=== PATIENT | male | born 1965 | race Caucasian/White ===

== ENCOUNTER 2017-03-19 12:20 | Emergency (ER) | payer MEDICARE, MEDICAID ==
[2015-09-05 08:36] VITALS: Ht 180.3 cm; Wt 106.6 kg
[~2017-03-19] VITALS: Ht 180.3 cm; Wt 106.6 kg
[~2017-03-19 12:20] MED LIST: AMIT-104 PO; ASP325 PO; ASPI-1471 PO; ATOR40TA24 PO; BETA BLOCKER; CALC500T76 PO; CIT20 PO; CITA-156 PO; CLO5 PO; DEXL60CA6 PO; DIPH-1 PO; ERYT1OIN3 OP; FISH OIL1 CAP PO; HYDR-4240 PO; IBUP600T22 PO; LISI5TAB25 PO; LOR1 PO; MEDR150V11 IM; METO25TA93 PO; METO50TA19 PO; MODA200T55 PO; MODA200T6 PO; MULT-451 PO; MULT-885 PO; MULTIVIT; NEBI1TAB PO; NIC10R; NO MEDS; OMEG500C7 PO; OMEP-125 PO; OMEP40CA79 PO; PAR20 PO; PAROX40PT PO; ROBAXIN; ROPI0.5T25 PO; SIMV-42 PO; SIMV-44 PO; STATIN; TICA90TA PO; TIOT4MIS3; TRAZ-133 PO; TRAZ-163 PO; TRAZ50 PO; TRAZEDONE PO; ZOL5 PO; acid reflux med
[2017-03-19] MEDS ORDERED: ASPIRIN 81 MG CHEW PO ONE (12:30)
--- NOTE | 2017-03-19 12:30 | ER Report ---
History and Physical Time Seen By MD: 12:28 HPI/ROS CHIEF COMPLAINT: Chest pain HISTORY OF PRESENT ILLNESS: 52-year-old male comes emergency Department today with complaint of left-sided pleuritic chest discomfort. Patient has had multiple episodes of similar issues in the past was seen here several months ago had a recent stress test done less than 6 months ago which was negative has a significant history of multiple stent placements followed a cardiology out of [place]. Patient states he was in his normal state of health earlier today at about 1520 minutes prior to presentation started getting some pain in the left side described as sharp stabbing pleuritic some radiation left upper extremity had this pain in numerous occasions in the past last workup was essentially negative. Patient denies any nausea vomiting diarrhea fever chills associated shortness of breath patient still smoker patient has no additional complaints at this time REVIEW OF SYSTEMS: Respiratory: No cough, no dyspnea. Cardiovascular: Chest pain without palpitation Gastrointestinal: No vomiting, no abdominal pain. Musculoskeletal: No back pain. Remainder of the 14 system rev: Yes Allergies: Coded Allergies: codeine (Verified Adverse Reaction, Mild, NAUSEA/VOMITING, RASHES, 03/19/17) Home Meds Reported Medications Fluticasone/Vilanterol 100/25 Mcg/Inh (BREO ELLIPTA 100/25 MCG) 1 Each Aer.pow.ba, 1 INH INH QDAY, INH 03/19/17 Ezetimibe (ZETIA) 10 Mg Tablet, 10 MG PO QDAY, TAB 03/19/17 Rosuvastatin Calcium (Rosuvastatin Calcium) 40 Mg Tablet 03/19/17 Nitroglycerin (NITROGLYCERIN) 0.4 Mg Tab.subl, 0.4 MG SL Q5MIN 03/19/17 Lisinopril (LISINOPRIL) 5 Mg Tablet, 5 MG PO QDAY, TAB 11/15/16 Ropinirole Hcl (ROPINIROLE HCL) 0.5 Mg Tablet, 0.5 MG PO HS 11/15/16 Omeprazole (OMEPRAZOLE) 20 Mg Capsule.dr, 1 CAP PO QDAY, CAP 11/15/16 Trazodone Hcl (TRAZODONE HCL) 100 Mg Tablet, 100 MG PO HS, TAB 04/16/16 Metoprolol Succinate (METOPROLOL SUCCINATE) 50 Mg Tab.er.24h, 1 TAB PO QDAY, TAB 04/16/16 Ticagrelor (BRILINTA) 90 Mg Tablet, 90 MG PO 04/16/16 Aspirin (ASPIR 81) 81 Mg Tablet.dr, 81 MG PO QDAY, TAB 09/06/15 Atorvastatin Calcium (LIPITOR) 40 Mg Tablet, 1 TAB PO QDAY, TAB 09/04/15 Multivitamin (DAILY VITAMIN) 1 Each Tablet, 1 EACH PO DAILY 09/26/12 Discontinued Reported Medications Tiotropium Br/Olodaterol HCl (Stiolto Respimat Inhal [place]) 4 Gm Mist.inhal 11/15/16 Nebivolol HCl/Valsartan ([place] 5 mg-80 mg Tablet) 5 Mg-80 Mg Tablet, 1 TAB PO DAILY 06/03/16 [place]-3 Fatty Acids (FISH OIL) 500 Mg Capsule, 1000 MG PO, CAPSULE 09/06/15 Reviewed Nurses Notes: Yes Old Medical Records Reviewed: Yes Hx Smoking: Yes Smoking Status: Heavy Tobacco Smoker Exposure to Second Hand Smoke?: No Hx Substance Use Disorder: No (Past marijuana use.) Hx Alcohol Use: No Constitutional Vital Sign - Last 24 Hours 03/19/17 03/19/17 03/19/17 03/19/17 12:24 12:26 12:30 12:35 Pulse 68 67 Resp 20 B/P (MAP) 141/92 (108) 142/92 132/86 (101) Pulse Ox 94 95 O2 Delivery Room Air 03/19/17 03/19/17 03/19/17 03/19/17 13:05 13:13 13:30 13:35 Pulse 68 70 B/P (MAP) 111/80 (90) 126/77 (93) Pulse Ox 94 90 03/19/17 03/19/17 03/19/17 03/19/17 13:55 14:00 14:05 14:30 Pulse 72 B/P (MAP) 119/94 (102) 126/83 (97) 124/88 (100) Pulse Ox 93 03/19/17 14:35 Pulse 69 Pulse Ox 91 Physical Exam General Appearance: The patient is alert, has no immediate need for airway protection and no current signs of toxicity. [ ] Eyes: Pupils equal and round no injection. Respiratory: Chest is non tender, lungs are clear to auscultation. Cardiac: regular rate and rhythm [ ] Gastrointestinal: Abdomen is soft and non tender, no masses, bowel sounds normal. Musculoskeletal: Neck: Neck is supple and non tender. Extremities have full range of motion and are non tender. Skin: No rashes or lesions. [ ] DIFFERENTIAL DIAGNOSIS: After history and physical exam differential diagnosis was considered for acute myocardial infarction and stenting pleuritic chest discomfort costochondritis pulmonary emboli aortic dissection Medical Decision Making Data Points Result Diagram: 03/19/17 1230 03/19/17 1230 Laboratory Hematology Test 03/19/17 12:30 03/19/17 14:44 Red Blood Count 5.22 M/uL (4.00-5.60) Mean Corpuscular Volume 87.4 fL (80.0-96.0) Mean Corpuscular Hemoglobin 29.8 pg (26.0-33.0) Mean Corpuscular Hemoglobin Concent 34.1 g/dL (32.0-36.0) Red Cell Distribution Width 14.1 % (11.5-14.5) Mean Platelet Volume 6.9 fL (7.2-11.1) Neutrophils (%) (Auto) 64.6 % (39.4-72.5) Lymphocytes (%) (Auto) 25.9 % (17.6-49.6) Monocytes (%) (Auto) 6.5 % (4.1-12.4) Eosinophils (%) (Auto) 2.0 % (0.4-6.7) Basophils (%) (Auto) 1.0 % (0.3-1.4) Nucleated RBC Relative Count (auto) 0.1 /100WBC Neutrophils # (Auto) 7.1 K/uL (2.0-7.4) Lymphocytes # (Auto) 2.9 K/uL (1.3-3.6) Monocytes # (Auto) 0.7 K/uL (0.3-1.0) Eosinophils # (Auto) 0.2 K/uL (0.0-0.5) Basophils # (Auto) 0.1 K/uL (0.0-0.1) Nucleated RBC Absolute Count (auto) 0.01 K/uL D-Dimer Quantitative (PE/DVT) 0.55 ug/ml (0-0.50) Sodium Level 144 mmol/L (137-145) Potassium Level 3.9 mmol/L (3.5-5.0) Chloride Level 108 mmol/L (98-107) Carbon Dioxide Level 22 mmol/L (22-30) Blood Urea Nitrogen 12 mg/dl (9-21) Creatinine 1.00 mg/dl (0.66-1.25) Glomerular Filtration Rate Calc > 60.0 Random Glucose 81 mg/dl (75-110) Calcium Level 9.3 mg/dl (8.4-10.2) Total Bilirubin 0.8 mg/dl (0.2-1.3) Aspartate Amino Transf (AST/SGOT) 36 U/L (0-35) Alanine Aminotransferase (ALT/SGPT) 71 U/L (0-56) Alkaline Phosphatase 115 U/L (0-126) Total Protein 7.9 gm/dl (6.3-8.2) Albumin 4.4 g/dl (3.5-5.0) Troponin I < 0.012 ng/ml Chemistry Test 03/19/17 12:30 03/19/17 14:44 White Blood Count 11.0 k/uL (4.5-11.0) Red Blood Count 5.22 M/uL (4.00-5.60) Hemoglobin 15.6 g/dL (14.0-18.0) Hematocrit 45.7 % (42.0-52.0) Mean Corpuscular Volume 87.4 fL (80.0-96.0) Mean Corpuscular Hemoglobin 29.8 pg (26.0-33.0) Mean Corpuscular Hemoglobin Concent 34.1 g/dL (32.0-36.0) Red Cell Distribution Width 14.1 % (11.5-14.5) Platelet Count 365 K/uL (150-450) Mean Platelet Volume 6.9 fL (7.2-11.1) Neutrophils (%) (Auto) 64.6 % (39.4-72.5) Lymphocytes (%) (Auto) 25.9 % (17.6-49.6) Monocytes (%) (Auto) 6.5 % (4.1-12.4) Eosinophils (%) (Auto) 2.0 % (0.4-6.7) Basophils (%) (Auto) 1.0 % (0.3-1.4) Nucleated RBC Relative Count (auto) 0.1 /100WBC Neutrophils # (Auto) 7.1 K/uL (2.0-7.4) Lymphocytes # (Auto) 2.9 K/uL (1.3-3.6) Monocytes # (Auto) 0.7 K/uL (0.3-1.0) Eosinophils # (Auto) 0.2 K/uL (0.0-0.5) Basophils # (Auto) 0.1 K/uL (0.0-0.1) Nucleated RBC Absolute Count (auto) 0.01 K/uL D-Dimer Quantitative (PE/DVT) 0.55 ug/ml (0-0.50) Glomerular Filtration Rate Calc > 60.0 Calcium Level 9.3 mg/dl (8.4-10.2) Total Bilirubin 0.8 mg/dl (0.2-1.3) Aspartate Amino Transf (AST/SGOT) 36 U/L (0-35) Alanine Aminotransferase (ALT/SGPT) 71 U/L (0-56) Alkaline Phosphatase 115 U/L (0-126) Total Protein 7.9 gm/dl (6.3-8.2) Albumin 4.4 g/dl (3.5-5.0) Troponin I < 0.012 ng/ml Coagulation Test 03/19/17 12:30 D-Dimer Quantitative (PE/DVT) 0.55 ug/ml ED Course/Re-evaluation ED Course ED clinical course 52-year-old male significant cardiac history comes in with episodic pleuritic chest discomfort. 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
[2017-03-19] MEDS ORDERED: EZET10TA41 PO (12:33)
[2017-03-19] MEDS ORDERED: ROSU40TA10 (12:33)
[2017-03-19] MEDS ORDERED: NITR0.4T3 SL (12:33)
[2017-03-19] MEDS ORDERED: FLUT1AER INH (12:33)
[2017-03-19 12:37] LABS: PLATELET COUNT, AUTOMATED 365 K/uL (150-450)
--- NOTE | 2017-03-19 12:40 | EKG ---
FACILITY: [facility] - [place] PATIENT NAME: LES JOHNSTON : [id number] MR: [id number] V: [id number] EXAM DATE: ORDERING PHYSICIAN: PRIMITIVO PEARL TECHNOLOGIST: Test Reason : Blood Pressure : / mmHG Vent. Rate : 064 BPM Atrial Rate : 064 BPM P-R Int : 132 ms QRS Dur : 088 ms QT Int : 420 ms P-R-T Axes : 031 057 042 degrees QTc Int : 433 ms Sinus rhythm Otherwise normal ECG Relatively unchanged except not tachycardic today. Confirmed by LARRY CARROLL ([id number]) on 03/19/2017 5:18:00 PM Referred By: Confirmed By:LARRY CARROLL
[2017-03-19] MEDS ORDERED: IOPAMIDOL 76% 75 ML INFUS BTL 75 ML ONE (13:14)
[2017-03-19] MEDS ORDERED: NS 0.9% 20 ML SDV 100 ML ONE (13:15)
--- NOTE | 2017-03-19 13:36 | RADIOLOGY IMAGING REPORT ---
FACILITY: [facility] PATIENT NAME: Reggie Koehler : 1965 MR: [id number] V: [id number] EXAM DATE: ORDERING PHYSICIAN: PRIMITIVO PEARL TECHNOLOGIST: Location: [facility] - [place] Patient: Reggie Koehler : 1965 Visit/Account:[id number] Date of Sevice: 03/19/2017 Exam type: CHEST PA AND LAT History: Chest pain x1 hour, tingling numbness down both hands Comparison: November 15, 2016. Findings: Again noted is hyperinflation of the lung vick. Mild chronic interstitial prominence throughout th e lungs also unchanged. There is no evidence of acute appearing infiltrates. The cardiac silhouette is normal in size. There are sternotomy sutures present.. There mild spondylotic changes of the th oracic spine. IMPRESSION: 1. No acute cardiopulmonary process is seen Report Dictated By: Lu Leal MD at 03/19/2017 1:29 PM Report E-Signed By: Lu Leal MD at 03/19/2017 1:31 PM WSN:[email or web address]
--- NOTE | 2017-03-19 14:30 | RADIOLOGY IMAGING REPORT ---
FACILITY: [facility] - [place] PATIENT NAME: Reggie Koehler : 1965 MR: [id number] V: [id number] EXAM DATE: ORDERING PHYSICIAN: PRIMITIVO PEARL TECHNOLOGIST: Location: [facility] Patient: Reggie Koehler : 1965 Visit/Account:[id number] Date of Sevice: 03/19/2017 CTA CHEST WW/O CNTR (PULM ANG) HISTORY: Elevated d-dimer, shortness of breath ADDITIONAL HISTORY: None. TECHNIQUE: CTA chest with intravenous contrast. Axial imaging acquired following administration of IV contrast timed for maximum opacification of the pulmonary arterial vasculature. Slab 3-D MIP velma nstructed images were also created for further evaluation and interpretation. Reconstruction of the s ource data set includes multiplanar 2-D in the sagittal and coronal planes and 3-D reconstructed onelia nal slab MIP series. 3-D images were created by the technologist. Dose Lowering Technique One of the following dose optimization techniques was utilized in the performance of this exam: Autom ated exposure control; adjustment of the mA and/or kV according to the patient's size; or use of an i terative reconstruction technique. Specific details can be referenced in the facility's radiology C T exam operational policy. CONTRAST: 75 mL Isovue-370 COMPARISON: April 16, 2016 FINDINGS: Lungs/pleura: Moderately advanced centrilobular emphysema again seen throughout the lungs. 3 mm subpleural nodule anterior aspect right upper lobe appears unchanged best seen on image 120 of s eries 5. 9 x 7 mm subpleural nodular density in the right middle lobe along the minor fissure also appears unc hanged best seen on image 183. 6 mm subpleural nodule inferior right middle lobe also unchanged best seen on image 231 4 mm subpleural nodule right lower lobe also unchanged best seen on image 205. 6 mm subpleural nodule medial aspect left upper lobe best seen on image 128 also unchanged. There are dependent changes in the lower lung vick Heart/vessels: Sternotomy sutures with prior CABG and coronary stents noted. Calcifications are pre sent in the coronary arteries. No evidence of pulmonary emboli Mediastinum/lymph nodes: Negative. Visualized upper abdomen: Negative. Bones/soft tissues: Prior sternotomy Additional findings: None IMPRESSION: No evidence of pulmonary emboli Moderately advanced centrilobular emphysema throughout the lungs Multiple pulmonary nodules as described above all appear unchanged. Largest nodule has an average d iameter of 8 mm. The current Fleischner Society recommendations are as follows For nodules this size in a low-risk patient (minimal or absent smoking history, no history of malignancy), a 3-6 month fol low-up CT is recommended, then consider CT at 18-24 months. In a high risk patient, (smoking or malig jamal history), a CT at 3-6 months then at 18-24 months is recommended. Report Dictated By: Lu Leal MD at 03/19/2017 2:13 PM Report E-Signed By: Lu Leal MD at 03/19/2017 2:26 PM WSN:[email or web address]
[2017-03-19 15:22] VITALS: BP 117/78
== END 2017-03-19 15:26 | disposition home or self-care (01) ==
LOC: ER 12:38
DX: R07.89 Other chest pain (principal)
CPT/HCPCS: 71046; 71275; 84484; 85025; 85379; 93005; 99284; A9270; J7050; Q9967; 82040; 82247; 82310; 82374; 82435; 82565; 82947; 84075; 84132; 84155; 84295; 84450; 84460; 84520

== ENCOUNTER 2017-04-03 16:01 | Emergency (ER) | payer MEDICARE, MEDICAID ==
[2015-09-05 08:36] VITALS: Ht 180.3 cm; Wt 106.6 kg
[~2017-04-03] VITALS: Ht 180.3 cm; Wt 106.6 kg
[~2017-04-03 16:01] MED LIST changes: +EZET10TA41 PO; +FLUT1AER INH; +NITR0.4T3 SL; +ROSU40TA10
[2017-04-03] MEDS ORDERED: ASPIRIN 81 MG CHEW CHEW ONE (16:15)
[2017-04-03] MEDS ORDERED: TRAZ150T8 PO (16:16)
--- NOTE | 2017-04-03 16:22 | EKG ---
[place] [facility] [place] LES JOHNSTON : [id number] MR: [id number] V: [id number] EXAM DATE: ORDERING PHYSICIAN: WAQAS NEVILLE TECHNOLOGIST: OSWALD Templeton Reason : CHEST PAIN Blood Pressure : / mmHG Vent. Rate : 079 BPM Atrial Rate : 079 BPM P-R Int : 124 ms QRS Dur : 090 ms QT Int : 394 ms P-R-T Axes : 043 085 078 degrees QTc Int : 451 ms Sinus rhythm Nonspecific ST findings inferolateral leads Similar to EKG from 04/16/2016 Confirmed by GREG VEGA ([id number]) on 04/03/2017 5:22:03 PM Referred By: KELIN Confirmed By:GREG VEGA
[2017-04-03 16:31] LABS: PLATELET COUNT, AUTOMATED 310 K/uL (150-450)
--- NOTE | 2017-04-03 16:31 | ER Report ---
History and Physical Time Seen By MD: 16:30 Hx. of Stated Complaint: pt on treadmill at about 1545 and started having L upper arm pain, has hx of CABG and stents x 3 so was concerned. pt took [address] to ER HPI/ROS CHIEF COMPLAINT: Left arm pain HISTORY OF PRESENT ILLNESS: 52-year-old male patient presents to emergency room with complaint of left arm pain. Patient states that this began when he was walking on the treadmill. Patient states he has a significant heart history, with a quadruple bypass, stents. He states that he was walking at a low intensity, 2.8 miles per hour on a flat surface. Patient states that the pain started. He states that he did not have any shortness of breath. He states with his heart history became concerned and left the gym. He got into his car where he took a nitroglycerin. He states that he contact his and it dropped to emergency room. Patient states that this time he is completely pain-free. He denies any numbness tingling in his fingers. He denies having any chest pain. REVIEW OF SYSTEMS: Respiratory: No cough, no dyspnea. Cardiovascular: As noted above. Gastrointestinal: No vomiting, no abdominal pain. Musculoskeletal: As noted above. Allergies: Coded Allergies: codeine (Verified Adverse Reaction, Mild, NAUSEA/VOMITING, RASHES, 04/03/17 ) Home Meds Reported Medications Trazodone Hcl (TRAZODONE HCL) 150 Mg Tablet, 150 MG PO QHS 04/03/17 Fluticasone/Vilanterol 100/25 Mcg/Inh (BREO ELLIPTA 100/25 MCG) 1 Each Aer.pow.ba, 1 INH INH QDAY, INH 03/19/17 Ezetimibe (ZETIA) 10 Mg Tablet, 10 MG PO QDAY, TAB 03/19/17 Rosuvastatin Calcium (Rosuvastatin Calcium) 40 Mg Tablet 03/19/17 Nitroglycerin (NITROGLYCERIN) 0.4 Mg Tab.subl, 0.4 MG SL Q5MIN 03/19/17 Lisinopril (LISINOPRIL) 5 Mg Tablet, 5 MG PO QDAY, TAB 11/15/16 Ropinirole Hcl (ROPINIROLE HCL) 0.5 Mg Tablet, 0.5 MG PO HS 11/15/16 Omeprazole (OMEPRAZOLE) 20 Mg Capsule.dr, 1 CAP PO QDAY, CAP 11/15/16 Metoprolol Succinate (METOPROLOL SUCCINATE) 50 Mg Tab.er.24h, 1 TAB PO QDAY, TAB 04/16/16 Ticagrelor (BRILINTA) 90 Mg Tablet, 90 MG PO 04/16/16 Aspirin (ASPIR 81) 81 Mg Tablet.dr, 81 MG PO QDAY, TAB 09/06/15 Multivitamin (DAILY VITAMIN) 1 Each Tablet, 1 EACH PO DAILY 09/26/12 Discontinued Reported Medications Trazodone Hcl (TRAZODONE HCL) 100 Mg Tablet, 100 MG PO HS, TAB 04/16/16 Atorvastatin Calcium (LIPITOR) 40 Mg Tablet, 1 TAB PO QDAY, TAB 09/04/15 Past Medical/Surgical History Patient has a past medical history of VT, hypertension, hyperlipidemia, sleep apnea, COPD, reflux, depression, suicide attempt. Patient has a surgical history of quadruple bypass, stent placement. Reviewed Nurses Notes: Yes Hx Smoking: Yes Smoking Status: Heavy Tobacco Smoker Exposure to Second Hand Smoke?: No Hx Substance Use Disorder: No (Past marijuana use.) Hx Alcohol Use: No Constitutional Vital Sign - Last 24 Hours 04/03/17 04/03/17 04/03/17 04/03/17 16:05 16:30 16:45 17:15 Pulse 84 78 Resp 15 B/P (MAP) 108/84 112/69 (83) 107/78 (88) 118/78 (91) Pulse Ox 94 93 O2 Delivery Room Air 04/03/17 04/03/17 04/03/17 04/03/17 17:30 18:00 18:15 18:30 Pulse 78 76 82 B/P (MAP) 111/81 (91) 111/91 (98) 111/78 (89) 114/86 (95) Pulse Ox 94 91 78 04/03/17 04/03/17 04/03/17 04/03/17 18:35 18:45 18:50 19:00 Pulse 70 66 B/P (MAP) 107/84 (92) 115/83 (94) Pulse Ox 92 94 04/03/17 04/03/17 04/03/17 04/03/17 19:05 19:10 19:15 19:25 Pulse 74 75 76 B/P (MAP) 117/82 (94) Pulse Ox 93 94 92 04/03/17 04/03/17 04/03/17 04/03/17 19:30 19:40 19:45 19:55 Pulse 72 73 B/P (MAP) 133/79 (97) 129/81 (97) Pulse Ox 94 94 Physical Exam General Appearance: The patient is alert, has no immediate need for airway protection and no current signs of toxicity. Respiratory: Chest is non tender, lungs are clear to auscultation. Cardiac: regular rate and rhythm Gastrointestinal: Abdomen is soft and non tender, no masses, bowel sounds normal. Musculoskeletal: Neck: Neck is supple and non tender. Extremities have full range of motion and are non tender. Patient does have some slight tenderness to the medial aspect of the left upper arm, no bruising. Skin: No rashes or lesions. DIFFERENTIAL DIAGNOSIS: After history and physical exam differential diagnosis was considered for chest pain including but not limited to myocardial ischemia, pericarditis pulmonary embolus, chest wall pain, pleural inflammation and pulmonary infectious causes. Medical Decision Making Data Points Result Diagram: 04/03/17 1610 04/03/17 1610 Laboratory Hematology Test 04/03/17 16:10 04/03/17 18:52 Red Blood Count 4.95 M/uL (4.00-5.60) Mean Corpuscular Volume 87.6 fL (80.0-96.0) Mean Corpuscular Hemoglobin 29.8 pg (26.0-33.0) Mean Corpuscular Hemoglobin Concent 34.0 g/dL (32.0-36.0) Red Cell Distribution Width 14.5 % (11.5-14.5) Mean Platelet Volume 7.1 fL (7.2-11.1) Neutrophils (%) (Auto) 58.6 % (39.4-72.5) Lymphocytes (%) (Auto) 28.5 % (17.6-49.6) Monocytes (%) (Auto) 8.5 % (4.1-12.4) Eosinophils (%) (Auto) 3.3 % (0.4-6.7) Basophils (%) (Auto) 1.1 % (0.3-1.4) Nucleated RBC Relative Count (auto) 0.1 /100WBC Neutrophils # (Auto) 6.4 K/uL (2.0-7.4) Lymphocytes # (Auto) 3.1 K/uL (1.3-3.6) Monocytes # (Auto) 0.9 K/uL (0.3-1.0) Eosinophils # (Auto) 0.4 K/uL (0.0-0.5) Basophils # (Auto) 0.1 K/uL (0.0-0.1) Nucleated RBC Absolute Count (auto) 0.01 K/uL Sodium Level 143 mmol/L (137-145) Potassium Level 3.7 mmol/L (3.5-5.0) Chloride Level 108 mmol/L (98-107) Carbon Dioxide Level 21 mmol/L (22-30) Blood Urea Nitrogen 13 mg/dl (9-21) Creatinine 1.00 mg/dl (0.66-1.25) Glomerular Filtration Rate Calc > 60.0 Random Glucose 76 mg/dl (75-110) Calcium Level 8.9 mg/dl (8.4-10.2) Total Bilirubin 0.4 mg/dl (0.2-1.3) Aspartate Amino Transf (AST/SGOT) 30 U/L (0-35) Alanine Aminotransferase (ALT/SGPT) 57 U/L (0-56) Alkaline Phosphatase 118 U/L (0-126) Total Protein 7.7 gm/dl (6.3-8.2) Albumin 4.2 g/dl (3.5-5.0) Troponin I < 0.012 ng/ml Chemistry Test 04/03/17 16:10 04/03/17 18:52 White Blood Count 10.9 k/uL (4.5-11.0) Red Blood Count 4.95 M/uL (4.00-5.60) Hemoglobin 14.7 g/dL (14.0-18.0) Hematocrit 43.4 % (42.0-52.0) Mean Corpuscular Volume 87.6 fL (80.0-96.0) Mean Corpuscular Hemoglobin 29.8 pg (26.0-33.0) Mean Corpuscular Hemoglobin Concent 34.0 g/dL (32.0-36.0) Red Cell Distribution Width 14.5 % (11.5-14.5) Platelet Count 310 K/uL (150-450) Mean Platelet Volume 7.1 fL (7.2-11.1) Neutrophils (%) (Auto) 58.6 % (39.4-72.5) Lymphocytes (%) (Auto) 28.5 % (17.6-49.6) Monocytes (%) (Auto) 8.5 % (4.1-12.4) Eosinophils (%) (Auto) 3.3 % (0.4-6.7) Basophils (%) (Auto) 1.1 % (0.3-1.4) Nucleated RBC Relative Count (auto) 0.1 /100WBC Neutrophils # (Auto) 6.4 K/uL (2.0-7.4) Lymphocytes # (Auto) 3.1 K/uL (1.3-3.6) Monocytes # (Auto) 0.9 K/uL (0.3-1.0) Eosinophils # (Auto) 0.4 K/uL (0.0-0.5) Basophils # (Auto) 0.1 K/uL (0.0-0.1) Nucleated RBC Absolute Count (auto) 0.01 K/uL Glomerular Filtration Rate Calc > 60.0 Calcium Level 8.9 mg/dl (8.4-10.2) Total Bilirubin 0.4 mg/dl (0.2-1.3) Aspartate Amino Transf (AST/SGOT) 30 U/L (0-35) Alanine Aminotransferase (ALT/SGPT) 57 U/L (0-56) Alkaline Phosphatase 118 U/L (0-126) Total Protein 7.7 gm/dl (6.3-8.2) Albumin 4.2 g/dl (3.5-5.0) Troponin I < 0.012 ng/ml EKG/Imaging EKG Interpretation 12 lead EKG: Rhythm: normal sinus rhythm [place]: normal QRS: normal ST segments: Nonspecific ST changes. Imaging Exam type: CHEST PA AND LAT History: Chest pain, history of heart attacks, history of smoking Comparison: March 19, 2017. Findings: There is hyperinflation lung vick bilaterally. Mild chronic interstitial process upper lungs also appear similar to the prior examination. There is no evidence of acute-appearing pulmonary consolidation pleural effusions or overt pulmonary edema. Cardiac silhouette is normal in size. There are sternotomy sutures present. IMPRESSION: 1. Hyperinflation lung vick and chronic interstitial changes throughout the lungs although no evidence of acute pulmonary consolidation. Report Dictated By: Lu Leal MD at 04/03/2017 5:05 PM Report E-Signed By: Lu Leal MD at 04/03/2017 5:07 PM ED Course/Re-evaluation ED Course Patient was admitted to exam room, history and physical were obtained. Differential diagnoses were considered. On examination patient had no chest pain. Patient did have a little bit of tenderness to the medial aspect of the left upper arm. A CBC, CMP, chest x-ray, EKG, troponin were done. The troponin was negative, labs were unremarkable. EKG showed no acute changes, chest x-ray showed hyperexpansion but no acute cardiopulmonary processes. A repeat troponin was done at 1845. That was also negative. At that time at the behest of the patient I did contact [facility] [place] and spoke with cardiology , Dr. Lawson. Apprise Counselor had no other recommendations encourage the patient follow-up in the next few weeks with his global recruiter. I discussed with the patient who verbalized understanding and agreement. We'll go ahead and discharge him home at this time. Patient is to limit his activity by pain. He is return to emergency room if condition worsens. He is to stop and rest if he has anymore pain. If he has persistent pain after some rest and then I recommend that he returns to emergency room. Patient and his verbalized understanding and agreement with plan. Decision to Disposition Date: Apr 03, 2017 Decision to Disposition Time: 19:53 Depart Departure Latest Vital Signs Vital Signs Date Time Temp Pulse Resp B/P (MAP) Pulse Ox O2 Delivery O2 Flow Rate FiO2 04/03/17 19:55 73 94 04/03/17 19:45 129/81 (97) 04/03/17 16:05 15 Room Air Impression: Primary Impression: Chest pain Condition: Improved Disposition: HOME OR SELF-CARE Referrals: SUSANA RUSSELL PA-C (PCP) Patient Instructions: Chest Pain (ED) Additional Instructions: You may continue with your normal activity level. Increase fluid intake. Get plenty of rest. Follow up with your global recruiter as previously scheduled. Return to the ER if condition worsens. Continue with your current medications. Problem Qualifiers Primary Impression: Chest pain Chest pain type: other chest pain Qualified Codes: R07.89 - Other chest pain MITCHELL PRUITT Apr 03, 2017 16:31
--- NOTE | 2017-04-03 17:11 | RADIOLOGY IMAGING REPORT ---
FACILITY: [facility] - [place] PATIENT NAME: Reggie Koehler : 1965 MR: [id number] V: [id number] EXAM DATE: ORDERING PHYSICIAN: WAQAS NEVILLE TECHNOLOGIST: Location: Patient: Reggie Koehler : 1965 Visit/Account:[id number] Date of Sevice: 04/03/2017 Exam type: CHEST PA AND LAT History: Chest pain, history of heart attacks, history of smoking Comparison: March 19, 2017. Findings: There is hyperinflation lung vick bilaterally. Mild chronic interstitial process upper lungs also appear similar to the prior examination. There is no evidence of acute-appearing pulmonary consolida tion pleural effusions or overt pulmonary edema. Cardiac silhouette is normal in size. There are st ernotomy sutures present. IMPRESSION: 1. Hyperinflation lung vick and chronic interstitial changes throughout the lungs although no evid ence of acute pulmonary consolidation. Report Dictated By: Lu Leal MD at 04/03/2017 5:05 PM Report E-Signed By: Lu Leal MD at 04/03/2017 5:07 PM WSN:[email or web address]
[2017-04-03 19:45] VITALS: BP 129/81
== END 2017-04-03 20:06 | disposition home or self-care (01) ==
LOC: ER 16:29
DX: R07.89 Other chest pain (principal); M79.602 Pain in left arm; R91.8 Other nonspecific abnormal finding of lung field
CPT/HCPCS: 71046; 84484; 85025; 93005; 99284; A9270; 82040; 82247; 82310; 82374; 82435; 82565; 82947; 84075; 84132; 84155; 84295; 84450; 84460; 84520

== ENCOUNTER → 2017-04-14 | Outpatient (CLI) | payer MEDICARE, MEDICAID ==
[2015-09-05 08:36] VITALS: BMI 30.5
[~2017-04-14] MED LIST changes: +TRAZ150T8 PO
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
== END ==
LOC: RAD 13:46
PROVIDERS: ATTEND Family Medicine
DX: M47.894 Other spondylosis, thoracic region (principal); Z98.890 Other specified postprocedural states
CPT/HCPCS: 72072

== ENCOUNTER → 2017-04-16 | Outpatient (REF) | payer MEDICARE, MEDICAID ==
[2015-09-05 08:36] VITALS: BMI 30.5
[2017-04-16 08:06] LABS: PLATELET COUNT, AUTOMATED 329 K/uL (150-450)
== END ==
LOC: ZZSENDIN 07:15
PROVIDERS: ATTEND Internal Medicine
DX: J43.2 Centrilobular emphysema (principal); R06.02 Shortness of breath
CPT/HCPCS: 82103; 85025

== ENCOUNTER → 2017-04-16 | Outpatient (CLI) | payer MEDICARE, MEDICAID ==
[2015-09-05 08:36] VITALS: BMI 30.5
== END ==
LOC: LAB 06:45
PROVIDERS: ATTEND Internal Medicine Cardiovascular Disease
DX: I25.10 Atherosclerotic heart disease of native coronary artery without angina pectoris (principal); E78.5 Hyperlipidemia, unspecified
CPT/HCPCS: 36415; 82465; 83718; 84478

== ENCOUNTER 2017-06-23 14:05 | Emergency (ER) | payer MEDICARE, MEDICAID ==
[2015-09-05 08:36] VITALS: Wt 106.6 kg
--- NOTE | 2017-06-23 14:07 | ER Report ---
History and Physical Time Seen By MD: 14:06 (CASSIDY SANCHEZ DO) HPI/ROS CHIEF COMPLAINT: Chest pain HISTORY OF PRESENT ILLNESS: Patient is a 52-year-old male here with 45 minutes history of pain down his left arm on the posterior aspect without distinct chest pain. Patient reportedly has a history of several myocardial infarctions with bypass and stent placements. He reports that he is having similar pain as compared to his prior episodes. Patient has a history of hypertension hyperlipidemia, prior cardiac events, quit smoking several months ago and does not know his family history as he is adopted. Patient is hemodynamically stable at time of evaluation, complaining of persistent chest pain since time of onset.. Patient denies fevers, chills, headaches, blurred vision, nausea, vomiting. REVIEW OF SYSTEMS: Constitutional: No fever, no chills. Eyes: No discharge. ENT: No sore throat. Cardiovascular: No chest pain, no palpitations, + left posterior throbbing arm pain Respiratory: No cough, no shortness of breath. Gastrointestinal: No abdominal pain, no vomiting. Genitourinary: No hematuria. Musculoskeletal: No back pain. Skin: No rashes. Neurological: No headache. (CASSIDY SANCHEZ DO) Allergies: Coded Allergies: codeine (Verified Adverse Reaction, Mild, NAUSEA/VOMITING, RASHES, 04/03/17 ) Home Meds Reported Medications Trazodone Hcl (TRAZODONE HCL) 150 Mg Tablet, 150 MG PO QHS 04/03/17 Fluticasone/Vilanterol 100/25 Mcg/Inh (BREO ELLIPTA 100/25 MCG) 1 Each Aer.pow.ba, 1 INH INH QDAY, INH 03/19/17 Ezetimibe (ZETIA) 10 Mg Tablet, 10 MG PO QDAY, TAB 03/19/17 Rosuvastatin Calcium (Rosuvastatin Calcium) 40 Mg Tablet 03/19/17 Nitroglycerin (NITROGLYCERIN) 0.4 Mg Tab.subl, 0.4 MG SL Q5MIN 03/19/17 Lisinopril (LISINOPRIL) 5 Mg Tablet, 5 MG PO QDAY, TAB 11/15/16 Ropinirole Hcl (ROPINIROLE HCL) 0.5 Mg Tablet, 0.5 MG PO HS 11/15/16 Omeprazole (OMEPRAZOLE) 20 Mg Capsule.dr, 1 CAP PO QDAY, CAP 11/15/16 Metoprolol Succinate (METOPROLOL SUCCINATE) 50 Mg Tab.er.24h, 1 TAB PO QDAY, TAB 04/16/16 Ticagrelor (BRILINTA) 90 Mg Tablet, 90 MG PO 04/16/16 Aspirin (ASPIR 81) 81 Mg Tablet.dr, 81 MG PO QDAY, TAB 09/06/15 Multivitamin (DAILY VITAMIN) 1 Each Tablet, 1 EACH PO DAILY 09/26/12 Hx Smoking: Yes Smoking Status: Heavy Tobacco Smoker Exposure to Second Hand Smoke?: No Hx Substance Use Disorder: No (Past marijuana use.) Hx Alcohol Use: No (CASSIDY SANCHEZ DO) Constitutional Vital Sign - Last 24 Hours 06/23/17 06/23/17 06/23/17 06/23/17 14:08 14:09 14:15 14:19 Pulse 79 Resp 20 B/P (MAP) 129/87 129/87 (101) 116/74 (88) 116/72 (87) Pulse Ox 92 O2 Delivery Room Air 06/23/17 06/23/17 06/23/17 06/23/17 14:20 14:21 14:35 14:36 Pulse 70 ??? Resp 18 27 B/P (MAP) 110/62 (78) 109/68 (82) Pulse Ox 94 06/23/17 06/23/17 06/23/17 06/23/17 14:45 14:50 15:00 15:05 Pulse 71 73 Resp 19 28 B/P (MAP) 107/70 (82) 108/75 (86) Pulse Ox 91 06/23/17 06/23/17 06/23/17 06/23/17 15:15 15:20 15:30 15:35 Pulse 63 67 Resp 20 16 B/P (MAP) 117/71 (86) 101/65 (77) 06/23/17 06/23/17 06/23/17 15:45 15:50 16:00 Pulse 72 Resp 24 B/P (MAP) 102/61 (75) 104/61 (75) Intake and Output 06/23/17 06/23/17 06/24/17 14:59 22:59 06:59 Intake Total 1000 ml Balance 1000 ml (MAYI CURRY MD) Physical Exam General Appearance: The patient is alert, has no immediate need for airway protection and no signs of toxicity. Eyes: Pupils equal and round no pallor or injection. ENT, Mouth: Mucous membranes are moist. Respiratory: There are no retractions, lungs are clear to auscultation. Cardiovascular: Regular rate and rhythm. Gastrointestinal: Abdomen is soft and non tender, no masses, bowel sounds normal. Neurological: No focal deficits Skin: Warm and dry, no rashes. Musculoskeletal: Neck is supple non tender. Extremities are nontender, nonswollen and have full range of motion. DIFFERENTIAL DIAGNOSIS: After history and physical exam differential diagnosis was considered for chest pain including but not limited to myocardial ischemia, pericarditis pulmonary embolus, chest wall pain, pleural inflammation and pulmonary infectious causes, musculoskeletal pain (CASSIDY SANCHEZ DO) Medical Decision Making Data Points Result Diagram: 06/23/17 1414 06/23/17 1414 Laboratory Hematology Test 06/23/17 14:14 06/23/17 17:32 Red Blood Count 5.03 M/uL (4.00-5.60) Mean Corpuscular Volume 86.7 fL (80.0-96.0) Mean Corpuscular Hemoglobin 29.6 pg (26.0-33.0) Mean Corpuscular Hemoglobin Concent 34.2 g/dL (32.0-36.0) Red Cell Distribution Width 13.3 % (11.5-14.5) Mean Platelet Volume 7.2 fL (7.2-11.1) Neutrophils (%) (Auto) 62.2 % (39.4-72.5) Lymphocytes (%) (Auto) 24.5 % (17.6-49.6) Monocytes (%) (Auto) 6.1 % (4.1-12.4) Eosinophils (%) (Auto) 6.3 % (0.4-6.7) Basophils (%) (Auto) 0.9 % (0.3-1.4) Nucleated RBC Relative Count (auto) 0.1 /100WBC Neutrophils # (Auto) 6.9 K/uL (2.0-7.4) Lymphocytes # (Auto) 2.7 K/uL (1.3-3.6) Monocytes # (Auto) 0.7 K/uL (0.3-1.0) Eosinophils # (Auto) 0.7 K/uL (0.0-0.5) Basophils # (Auto) 0.1 K/uL (0.0-0.1) Nucleated RBC Absolute Count (auto) 0.01 K/uL Peripheral Blood Smear No Y/N Sodium Level 145 mmol/L (137-145) Potassium Level 3.5 mmol/L (3.5-5.0) Chloride Level 106 mmol/L (98-107) Carbon Dioxide Level 23 mmol/L (22-30) Blood Urea Nitrogen 11 mg/dl (9-21) Creatinine 1.10 mg/dl (0.66-1.25) Glomerular Filtration Rate Calc > 60.0 Random Glucose 93 mg/dl (75-110) Calcium Level 9.6 mg/dl (8.4-10.2) Total Bilirubin 0.7 mg/dl (0.2-1.3) Aspartate Amino Transf (AST/SGOT) 25 U/L (0-35) Alanine Aminotransferase (ALT/SGPT) 31 U/L (0-56) Alkaline Phosphatase 101 U/L (0-126) Total Protein 7.8 gm/dl (6.3-8.2) Albumin 4.3 g/dl (3.5-5.0) Troponin I < 0.012 ng/ml Chemistry Test 06/23/17 14:14 06/23/17 17:32 White Blood Count 11.1 k/uL (4.5-11.0) Red Blood Count 5.03 M/uL (4.00-5.60) Hemoglobin 14.9 g/dL (14.0-18.0) Hematocrit 43.6 % (42.0-52.0) Mean Corpuscular Volume 86.7 fL (80.0-96.0) Mean Corpuscular Hemoglobin 29.6 pg (26.0-33.0) Mean Corpuscular Hemoglobin Concent 34.2 g/dL (32.0-36.0) Red Cell Distribution Width 13.3 % (11.5-14.5) Platelet Count 314 K/uL (150-450) Mean Platelet Volume 7.2 fL (7.2-11.1) Neutrophils (%) (Auto) 62.2 % (39.4-72.5) Lymphocytes (%) (Auto) 24.5 % (17.6-49.6) Monocytes (%) (Auto) 6.1 % (4.1-12.4) Eosinophils (%) (Auto) 6.3 % (0.4-6.7) Basophils (%) (Auto) 0.9 % (0.3-1.4) Nucleated RBC Relative Count (auto) 0.1 /100WBC Neutrophils # (Auto) 6.9 K/uL (2.0-7.4) Lymphocytes # (Auto) 2.7 K/uL (1.3-3.6) Monocytes # (Auto) 0.7 K/uL (0.3-1.0) Eosinophils # (Auto) 0.7 K/uL (0.0-0.5) Basophils # (Auto) 0.1 K/uL (0.0-0.1) Nucleated RBC Absolute Count (auto) 0.01 K/uL Peripheral Blood Smear No Y/N Glomerular Filtration Rate Calc > 60.0 Calcium Level 9.6 mg/dl (8.4-10.2) Total Bilirubin 0.7 mg/dl (0.2-1.3) Aspartate Amino Transf (AST/SGOT) 25 U/L (0-35) Alanine Aminotransferase (ALT/SGPT) 31 U/L (0-56) Alkaline Phosphatase 101 U/L (0-126) Total Protein 7.8 gm/dl (6.3-8.2) Albumin 4.3 g/dl (3.5-5.0) Troponin I < 0.012 ng/ml ([facility]) EKG/Imaging EKG Interpretation 12 lead EKG: Rhythm: Normal sinus rhythm with PVCs, ventricular rate 69, QT interval 450, normal axis, no ischemic changes. Monitor Interpretation: NSR with PVCs (CASSIDY SANCHEZ DO) ED Course/Re-evaluation ED Course Patient is a 52-year-old male here with complaints of left throbbing arm pain which she attributes to cardiac etiology. Patient has several episodes of myocardial infarction with possible stent placement and bypass surgeries. Patient has a history of hypertension, hyperlipidemia, smoking, unknown family history. EKG upon arrival showed no ischemic changes or ST elevations. Initial troponin was undetectable. 2nd troponin was scheduled for greater than 4 hours after initial onset of patient's pain which has been constant since time of onset though relieved moderately by subsequent nitroglycerin administration 2. Chest x-ray showed no acute findings. Patient to be discharged with outpatient follow-up with bottle tester if 2nd troponin is undetectable. Decision to Disposition Date: June 23, 2017 Decision to Disposition Time: 17:57 (CASSIDY SANCHEZ DO) ED Course I discussed this patient with Dr. Sanchez at shift change and assumed care. Second Troponin was undetectable, negative. The patient has no symptoms at this time. We called cardiology at [facility], and Dr. Benavides is not available. The patient will call Dr. Benavides tomorrow to arrange follow-up. Decision to Disposition Date: June 23, 2017 Decision to Disposition Time: 18:14 (MAYI CURRY MD) Depart Departure Latest Vital Signs Vital Signs Date Time Temp Pulse Resp B/P (MAP) Pulse Ox O2 Delivery O2 Flow Rate FiO2 06/23/17 16:00 104/61 (75) 06/23/17 15:50 72 24 06/23/17 14:50 91 06/23/17 14:08 Room Air (MAYI CURRY MD) Impression: Primary Impression: OTHER FORMS OF ANGINA PECTORIS Condition: Improved Disposition: HOME OR SELF-CARE Referrals: SUSANA RUSSELL PA-C (PCP) Patient Instructions: Angina (ED) Additional Instructions: Please call your bottle tester tomorrow morning. and arrange follow up promptly with your bottle tester within the next 2-4 days. Please return promptly if you develop chest pain, trouble breathing, fevers, chills, pain in your arm, swelling of the legs CASSIDY SANCHEZ DO June 23, 2017 14:07 MAYI CURRY MD June 23, 2017 17:56
[2017-06-23] MEDS ORDERED: NS(*) 0.9% 1000 ML BAG 1,000 ML IV ONE (14:14)
[2017-06-23] MEDS ORDERED: ASPIRIN 81 MG CHEW PO ONE (14:15)
[2017-06-23] MEDS ORDERED: NITROGLYCERIN 0.4 MG SUBL SL ONE (14:15)
--- NOTE | 2017-06-23 14:22 | EKG ---
FACILITY: [facility] PATIENT NAME: LES JOHNSTON : [id number] MR: [id number] V: [id number] EXAM DATE: ORDERING PHYSICIAN: CASSIDY RICHARDSON TECHNOLOGIST: VAZQUEZ Templeton Reason : CP Blood Pressure : / mmHG Vent. Rate : 069 BPM Atrial Rate : 069 BPM P-R Int : 136 ms QRS Dur : 096 ms QT Int : 420 ms P-R-T Axes : 050 086 060 degrees QTc Int : 450 ms Sinus rhythm with occasional premature ventricular complexes Nonspecific ST findings in the inferior leads Similar to previous EKGs Confirmed by GREG VEGA ([id number]) on 06/23/2017 2:36:18 PM Referred By: DEBRA Confirmed By:GREG VEGA
[2017-06-23 14:38] LABS: PLATELET COUNT, AUTOMATED 314 K/uL (150-450)
--- NOTE | 2017-06-23 15:38 | RADIOLOGY IMAGING REPORT ---
FACILITY: [facility] PATIENT NAME: Reggie Koehler : 1965 MR: [id number] V: [id number] EXAM DATE: ORDERING PHYSICIAN: CASSIDY RICHARDSON TECHNOLOGIST: Location: [facility] Patient: Reggie Koehler : 1965 Visit/Account:[id number] Date of Sevice: 06/23/2017 Exam type: CHEST PA AND LAT History: CHEST PAIN Comparison: April 03, 2017. Findings: There is hyperinflation lung vick bilaterally. Linear scarring in the lung bases again noted. The re is no evidence of focal infiltrates, pleural effusions or overt pulmonary edema. Cardiac silhouet te is normal in size. Sternotomy sutures present. IMPRESSION: 1. Hyperinflation lung vick and linear scarring in the lung bases appears similar to the prior francis dy Report Dictated By: Lu Leal MD at 06/23/2017 3:29 PM Report E-Signed By: Lu Leal MD at 06/23/2017 3:34 PM WSN:[email or web address]
[2017-06-23 16:00] VITALS: BP 104/61
== END 2017-06-23 18:25 | disposition home or self-care (01) ==
LOC: ER 14:06
DX: I20.8 Other forms of angina pectoris (principal); Z87.891 Personal history of nicotine dependence; I49.3 Ventricular premature depolarization
CPT/HCPCS: 71046; 84484; 85025; 93005; 96360; 96361; 99284; A9270; J7030; 82040; 82247; 82310; 82374; 82435; 82565; 82947; 84075; 84132; 84155; 84295; 84450; 84460; 84520

== ENCOUNTER 2018-01-05 18:10 | Emergency (ER) | payer MEDICARE ==
[2015-09-05 08:36] VITALS: Wt 106.6 kg
[~2018-01-05 18:10] MED LIST changes: -ROSU40TA10; +ROSU40TA2; -TRAZ-163 PO; +TRAZ100T31 PO
--- NOTE | 2018-01-05 18:18 | ER Report ---
History and Physical Time Seen By MD: 18:19 HPI/ROS CHIEF COMPLAINT: Chest pain HISTORY OF PRESENT ILLNESS: This is a 52-year-old male who presents to the emergency department for chest pain per patient states that about an hour and a half prior to arrival he was sitting watching TV and developed left sided anterior chest pain. No other complaints, no nausea or vomiting. No visual changes. No diaphoresis. No shortness of breath. Patient does have a rather extensive cardiac history. He took 2 nitroglycerin with no relief. He did take one 81 mg aspirin this morning however nothing since. No recent injuries. REVIEW OF SYSTEMS: Constitutional: No fever, no chills. Eyes: No discharge. ENT: No sore throat. Cardiovascular: As above. Respiratory: No cough, no shortness of breath. Gastrointestinal: No abdominal pain, no vomiting. Genitourinary: No hematuria. Musculoskeletal: No back pain. Skin: No rashes. Neurological: No headache. Allergies: Coded Allergies: codeine (Verified Adverse Reaction, Mild, NAUSEA/VOMITING, RASHES, 01/05/18) Home Meds Reported Medications Trazodone Hcl (TRAZODONE HCL) 150 Mg Tablet, 150 MG PO QHS 04/03/17 Fluticasone/Vilanterol 100/25 Mcg/Inh (BREO ELLIPTA 100/25 MCG) 1 Each Aer.pow.ba, 1 INH INH QDAY, INH 03/19/17 Ezetimibe (ZETIA) 10 Mg Tablet, 10 MG PO QDAY, TAB 03/19/17 Rosuvastatin Calcium (Rosuvastatin Calcium) 40 Mg Tablet 03/19/17 Nitroglycerin (NITROGLYCERIN) 0.4 Mg Tab.subl, 0.4 MG SL Q5MIN 03/19/17 Lisinopril (LISINOPRIL) 5 Mg Tablet, 5 MG PO QDAY, TAB 11/15/16 Ropinirole Hcl (ROPINIROLE HCL) 0.5 Mg Tablet, 0.5 MG PO HS 11/15/16 Omeprazole (OMEPRAZOLE) 20 Mg Capsule.dr, 1 CAP PO QDAY, CAP 11/15/16 Metoprolol Succinate (METOPROLOL SUCCINATE) 50 Mg Tab.er.24h, 1 TAB PO QDAY, TAB 04/16/16 Ticagrelor (BRILINTA) 90 Mg Tablet, 90 MG PO 04/16/16 Aspirin (ASPIR 81) 81 Mg Tablet.dr, 81 MG PO QDAY, TAB 09/06/15 Multivitamin (DAILY VITAMIN) 1 Each Tablet, 1 EACH PO DAILY 09/26/12 Past Medical/Surgical History The patient has a past medical and surgical history of quadruple bypass, bypass collapse, stent placements, angina, hypertension, hypercholesterolemia, sleep apnea, GERD. Reviewed Nurses Notes: Yes Hx Smoking: Yes Smoking Status: Heavy Tobacco Smoker Exposure to Second Hand Smoke?: No Hx Substance Use Disorder: No (Past marijuana use.) Hx Alcohol Use: No Constitutional Vital Sign - Last 24 Hours 01/05/18 01/05/18 01/05/18 01/05/18 18:16 18:18 18:25 18:30 Temp 97.4 Pulse 107 110 Resp 23 24 B/P (MAP) 144/96 144/96 (112) 114/89 (97) Pulse Ox 91 92 O2 Delivery Room Air 01/05/18 01/05/18 01/05/18 01/05/18 18:40 18:55 19:00 19:10 Pulse 101 103 106 Resp 30 35 20 B/P (MAP) 122/91 (101) Pulse Ox 92 90 92 01/05/18 01/05/18 01/05/18 01/05/18 19:25 19:30 19:40 19:55 Pulse 105 114 103 Resp 21 22 20 B/P (MAP) 131/83 (99) Pulse Ox 90 91 91 01/05/18 01/05/18 01/05/18 01/05/18 20:00 20:05 20:20 20:30 Pulse 102 110 Resp 40 27 B/P (MAP) 111/94 (100) 135/99 (111) Pulse Ox 91 90 01/05/18 01/05/18 01/05/18 01/05/18 20:50 20:55 21:00 21:10 Pulse 101 97 106 Resp 15 25 58 B/P (MAP) ???/??? (1665) Pulse Ox 90 91 90 Physical Exam General Appearance: The patient is alert, has no immediate need for airway protection and no signs of toxicity. Eyes: Pupils equal and round no pallor or injection. ENT, Mouth: Mucous membranes are moist. Respiratory: There are no retractions, lungs are clear to auscultation. Cardiovascular: Regular rate and rhythm, no murmurs, clicks or rubs. Improvement of chest pain with firm palpation. Gastrointestinal: Abdomen is soft and non tender, no masses, bowel sounds normal. Neurological: Alert and oriented 4. Moving all extremities. Following all commands. No focal neuro deficits. Skin: Warm and dry, no rashes. Musculoskeletal: Neck is supple non tender. Extremities are nontender, nonswollen and have full range of motion. DIFFERENTIAL DIAGNOSIS: After history and physical exam differential diagnosis was considered for chest pain including but not limited to myocardial ischemia, pericarditis pulmonary embolus, chest wall pain, pleural inflammation and pulmonary infectious causes. Medical Decision Making Data Points Result Diagram: 01/05/18181801/05/181818 Laboratory Hematology Test 01/05/18 18:19 01/05/18 20:51 Red Blood Count 5.70 M/uL (4.00-5.60) Mean Corpuscular Volume 87.2 fL (80.0-96.0) Mean Corpuscular Hemoglobin 29.5 pg (26.0-33.0) Mean Corpuscular Hemoglobin Concent 33.9 g/dL (32.0-36.0) Red Cell Distribution Width 15.1 % (11.5-14.5) Mean Platelet Volume 7.4 fL (7.2-11.1) Neutrophils (%) (Auto) 67.9 % (39.4-72.5) Lymphocytes (%) (Auto) 23.6 % (17.6-49.6) Monocytes (%) (Auto) 4.4 % (4.1-12.4) Eosinophils (%) (Auto) 2.4 % (0.4-6.7) Basophils (%) (Auto) 1.7 % (0.3-1.4) Nucleated RBC Relative Count (auto) 0.0 /100WBC Neutrophils # (Auto) 8.2 K/uL (2.0-7.4) Lymphocytes # (Auto) 2.8 K/uL (1.3-3.6) Monocytes # (Auto) 0.5 K/uL (0.3-1.0) Eosinophils # (Auto) 0.3 K/uL (0.0-0.5) Basophils # (Auto) 0.2 K/uL (0.0-0.1) Nucleated RBC Absolute Count (auto) 0.01 K/uL Peripheral Blood Smear Yes Y/N Sodium Level 142 mmol/L (137-145) Potassium Level 3.8 mmol/L (3.5-5.0) Chloride Level 107 mmol/L (98-107) Carbon Dioxide Level 24 mmol/L (22-30) Blood Urea Nitrogen 13 mg/dl (9-21) Creatinine 1.00 mg/dl (0.66-1.25) Glomerular Filtration Rate Calc > 60.0 Random Glucose 116 mg/dl (75-110) Calcium Level 9.5 mg/dl (8.4-10.2) Total Bilirubin 0.5 mg/dl (0.2-1.3) Aspartate Amino Transf (AST/SGOT) 27 U/L (0-35) Alanine Aminotransferase (ALT/SGPT) 40 U/L (0-56) Alkaline Phosphatase 95 U/L (0-126) Total Protein 8.5 g/dl (6.3-8.2) Albumin 4.4 g/dl (3.5-5.0) Troponin I < 0.012 ng/ml Chemistry Test 01/05/18 18:19 01/05/18 20:51 White Blood Count 12.0 k/uL (4.5-11.0) Red Blood Count 5.70 M/uL (4.00-5.60) Hemoglobin 16.8 g/dL (14.0-18.0) Hematocrit 49.7 % (42.0-52.0) Mean Corpuscular Volume 87.2 fL (80.0-96.0) Mean Corpuscular Hemoglobin 29.5 pg (26.0-33.0) Mean Corpuscular Hemoglobin Concent 33.9 g/dL (32.0-36.0) Red Cell Distribution Width 15.1 % (11.5-14.5) Platelet Count 383 K/uL (150-450) Mean Platelet Volume 7.4 fL (7.2-11.1) Neutrophils (%) (Auto) 67.9 % (39.4-72.5) Lymphocytes (%) (Auto) 23.6 % (17.6-49.6) Monocytes (%) (Auto) 4.4 % (4.1-12.4) Eosinophils (%) (Auto) 2.4 % (0.4-6.7) Basophils (%) (Auto) 1.7 % (0.3-1.4) Nucleated RBC Relative Count (auto) 0.0 /100WBC Neutrophils # (Auto) 8.2 K/uL (2.0-7.4) Lymphocytes # (Auto) 2.8 K/uL (1.3-3.6) Monocytes # (Auto) 0.5 K/uL (0.3-1.0) Eosinophils # (Auto) 0.3 K/uL (0.0-0.5) Basophils # (Auto) 0.2 K/uL (0.0-0.1) Nucleated RBC Absolute Count (auto) 0.01 K/uL Peripheral Blood Smear Yes Y/N Glomerular Filtration Rate Calc > 60.0 Calcium Level 9.5 mg/dl (8.4-10.2) Total Bilirubin 0.5 mg/dl (0.2-1.3) Aspartate Amino Transf (AST/SGOT) 27 U/L (0-35) Alanine Aminotransferase (ALT/SGPT) 40 U/L (0-56) Alkaline Phosphatase 95 U/L (0-126) Total Protein 8.5 g/dl (6.3-8.2) Albumin 4.4 g/dl (3.5-5.0) Troponin I < 0.012 ng/ml EKG/Imaging EKG Interpretation 12 lead EKG: Time of EKG 1828. Rhythm: Sinus tachycardia, ventricular rate 101 bpm. [place]: Rightward QRS: normal ST segments: No ST depression or elevation identified. No significant changes from the 06/23/2017 EKG other than rate. 12 lead EKG: Time of EKG 2054. Rhythm: Normal sinus rhythm, ventricular rate 98 bpm. [place]: Rightward QRS: normal ST segments: No ST depression or elevation identified. No changes from the 1st EKG. Imaging 2 VIEWS CHEST INDICATION: Chest pain. COMPARISON: 06/23/2017. FINDINGS: Cardiomediastinal silhouette and pulmonary vessels within normal limits. Sternotomy changes again present. There is no focal infiltrate or lobar consolidation. There is no pneumothorax or pleural effusion. No nodule. Chronic interstitial changes. Upper abdomen is unremarkable. No acute bony abnormality. IMPRESSION: 1. No acute cardiopulmonary process. Report Dictated By: Alok Haley at 01/05/2018 6:54 PM Report E-Signed By: Alok Haley at 01/05/2018 6:56 PM WSN:[email or web address] ED Course/Re-evaluation Clinical Indication for ER IV: IV Access ED Course The patient was admitted to room. A history physical were obtained. Differential diagnoses were considered. An IV was started. A CBC, CMP, troponin were obtained. EKG showing normal sinus rhythm, no changes from the previous EKGs. Two-view chest x-ray was negative for any acute cardiopulmonary process. 4 baby aspirin given. CBC and chemistry unremarkable. Negative troponin. There was relief of left-sided chest pain with palpation. Repeat troponin and EKG obtained. Repeat EKG negative for changes. Negative repeat troponin. I reviewed the laboratory studies with the patient. I did recommend the patient pulse up with his primary care provider, establish with a primary care provider and follow up with his certified appliance service technician this week for reevaluation. Patient is breast understanding and was discharged home. Patient was in agreement with this plan of care. Decision to Disposition Date: Jan 05, 2018 Decision to Disposition Time: 21:25 Depart Departure Latest Vital Signs Vital Signs Date Time Temp Pulse Resp B/P (MAP) Pulse Ox O2 Delivery O2 Flow Rate FiO2 01/05/18 21:10 106 58 90 01/05/18 21:00 ???/??? (1665) 01/05/18 18:16 97.4 Room Air Impression: Primary Impression: Chest pain Condition: Improved Disposition: HOME OR SELF-CARE Referrals: SUSANA RUSSELL PA-C (PCP) Patient Instructions: Chest Pain (ED) Additional Instructions: There were no acute findings there blood work, EKG or chest x-ray today. I would recommend following up with your primary care provider within the next 2-4 days for reevaluation. I would also recommend following up with your certified appliance service technician. Continue with your current medications. Drink plenty of water. Get plenty of rest. Return to the emergency department for any other concerns or worsening symptoms. Problem Qualifiers Primary Impression: Chest pain Chest pain type: unspecified Qualified Codes: R07.9 - Chest pain, unspecified ZEYNEP WHITMAN ASSOCIATE-BC Jan 05, 2018 18:18
[2018-01-05] MEDS ORDERED: ASPIRIN 81 MG CHEW PO ONE (18:30)
[2018-01-05 18:33] LABS: PLATELET COUNT, AUTOMATED 383 K/uL (150-450)
--- NOTE | 2018-01-05 18:40 | EKG ---
FACILITY: [facility] PATIENT NAME: LES JOHNSTON : [id number] MR: [id number] V: [id number] EXAM DATE: ORDERING PHYSICIAN: ZEYNEP WHITMAN TECHNOLOGIST: STEPHANIE Test Reason : CHEST DISCOMFORT Blood Pressure : / mmHG Vent. Rate : 101 BPM Atrial Rate : 101 BPM P-R Int : 124 ms QRS Dur : 092 ms QT Int : 352 ms P-R-T Axes : 032 093 043 degrees QTc Int : 456 ms Sinus tachycardia Rightward axis Borderline ECG When compared with ECG of 23-JUN-2017 14:10, premature ventricular complexes are no longer present Confirmed by LARRY CARROLL ([id number]) on 01/05/2018 8:23:58 PM Referred By: ZEYNEP Confirmed By:LARRY CARROLL
--- NOTE | 2018-01-05 19:00 | RADIOLOGY IMAGING REPORT ---
FACILITY: [facility] - [place] PATIENT NAME: Reggie Koehler : 1965 MR: [id number] V: [id number] EXAM DATE: ORDERING PHYSICIAN: ZEYNEP WHITMAN TECHNOLOGIST: Location: [facility] - [place] Patient: Reggie Koehler : 1965 Visit/Account:[id number] Date of Sevice: 01/05/2018 2 VIEWS CHEST INDICATION: Chest pain. COMPARISON: 06/23/2017. FINDINGS: Cardiomediastinal silhouette and pulmonary vessels within normal limits. Sternotomy changes again pre sent. There is no focal infiltrate or lobar consolidation. There is no pneumothorax or pleural effusion. No nodule. Chronic interstitial changes. Upper abdomen is unremarkable. No acute bony abnormality. IMPRESSION: 1. No acute cardiopulmonary process. Report Dictated By: Alok Haley at 01/05/2018 6:54 PM Report E-Signed By: Alok Haley at 01/05/2018 6:56 PM WSN:[id number]
--- NOTE | 2018-01-05 21:52 | EKG ---
FACILITY: [facility] - [place] PATIENT NAME: LES JOHNSTON : [id number] MR: [id number] V: [id number] EXAM DATE: ORDERING PHYSICIAN: ZEYNEP WHITMAN TECHNOLOGIST: SANDY Templeton Reason : REPEAT EKG Blood Pressure : / mmHG Vent. Rate : 098 BPM Atrial Rate : 098 BPM P-R Int : 124 ms QRS Dur : 092 ms QT Int : 356 ms P-R-T Axes : 051 093 065 degrees QTc Int : 454 ms Normal sinus rhythm Rightward axis No ST-T abnormalities When compared with ECG of 05-JAN-2018 18:29, No significant change was found Confirmed by LARRY CARROLL ([id number]) on 01/05/2018 10:55:58 PM Referred By: Confirmed By:LARRY CARROLL
== END 2018-01-05 21:35 | disposition home or self-care (01) ==
LOC: ER 18:28
DX: R07.9 Chest pain, unspecified (principal)
CPT/HCPCS: 71046; 84484; 85025; 93005; 99284; A9270; 82040; 82247; 82310; 82374; 82435; 82565; 82947; 84075; 84132; 84155; 84295; 84450; 84460; 84520